=== PATIENT | male | born 1955 | race Caucasian/White ===

== ENCOUNTER 2018-05-20 05:52 | Day surgery (SDC) | payer OTHER ==
[~2018-05-20] VITALS: Ht 172.7 cm; Wt 90.8 kg
[~2018-05-20 05:52] MED LIST: ACET325T45 GTB; ALBU2.5V36 NEB; AMAN100T GTB; ASC500 GTB; BISA10SU58 PR; CRAN3875 GTB; DEXT1CAP GTB; DOCU-144 GTB; ENOX30DI10 SQ; HYDR15SO8 GTB; MAGN400O19 PO; METO-448 GTB; MULT9LIQ4 GTB; NA P118E PR; PANT40TA3 GTB; QUET25TA GTB
[2018-05-20] MEDS ORDERED: PROPOFOL 200 MG INJ ONE (07:00)
[2018-05-20 07:15] VITALS: Ht 172.7 cm; Wt 90.8 kg
[2018-05-20] MEDS ORDERED: ACET-514 PO (07:28)
[2018-05-20] MEDS ORDERED: CLOT30CR24 TOP (07:28)
[2018-05-20] MEDS ORDERED: NICO-546 TD (07:28)
[2018-05-20] MEDS ORDERED: TRIA15CR52 TOP (07:28)
[2018-05-20] MEDS ORDERED: TAMS0.4C2 PO (07:28)
[2018-05-20] MEDS ORDERED: OMEP20CA16 PO (07:28)
[2018-05-20] MEDS ORDERED: DOCU100T PO (07:28)
[2018-05-20] MEDS ORDERED: [UNRECOGNIZED DRUG - OTHER] (07:28)
[2018-05-20] MEDS ORDERED: BACL10TA PO (07:28)
[2018-05-20] MEDS ORDERED: GABA-528 PO (07:28)
--- NOTE | 2018-05-20 07:48 | PREAC ---
Date/Time of Note Date/Time of Note DATE: 05/20/18 TIME: 07:46 Anesthesia Eval and Record Evaluation Time Pre-Procedure Interview DATE: 05/20/18 TIME: 07:46 Age 62 Sex male NPO: 8 hrs Preoperative diagnosis ABDOMINAL PAIN Planned procedure EGD AND COLON Past Medical History Past Medical History: Includes Pulm: Smoking Hx Hepatic: Hepatitis Surgery & Anesthesia Issues No known issue Meds Anticoagulation: No Beta Grecia within 24 hr: No Reason Beta Grecia not given: Pt. not on B-Grecia Reported Medications Acetaminophen (Mapap) 325 Mg Tablet, 325 MG PO, TAB 05/20/18 Triamcinolone Acetonide* (Kenalog*) 0.5%-15GM Cr, 1 APPLIC TOP BID, #1 BOTTLE 05/20/18 [Neomycin-Polymyxin ] No Conflict Check 05/20/18 Baclofen* (Baclofen*) 10 Mg Tablet, 10 MG PO Q8, TAB 05/20/18 Tamsulosin Hcl* (Tamsulosin Hcl*) 0.4 Mg Cap.er.24h, 0.4 MG PO DAILY, CAP 05/20/18 Omeprazole* (Omeprazole*) 20 Mg Capsule.dr, 20 MG PO DAILY, #30 CAP 05/20/18 Docusate Sodium* (Dok*) 100 Mg Tablet, 100 MG PO DAILY, #30 CAP 05/20/18 Nicotine* (Nicotine* Patch) 21 mg/day Patch, 1 EACH TD DAILY, PATCH 05/20/18 Clotrimazole* (Clotrimazole* AF) 1% - 30 Gm Cream.gm., 1 APPLIC TOP BID, TUB 05/20/18 Gabapentin* (Gabapentin*) 800 Mg Tablet, 800 MG PO TID, #90 TAB 05/20/18 Discontinued Reported Medications Magnesium Hydroxide* (Milk Of Magnesia*) 400 Mg/5 Ml Oral.susp, 30 ML PO Q24H for CONSTIPATION, ML 04/23/14 Bisacodyl* (Dulcolax*) 10 Mg/Supp.rect Supp.rect, 10 MG OK Q24H PRN for CONSTIPATION, SUPP.RECT 04/23/14 Ascorbic Acid (Vitamin C) 500 Mg Tab, 500 MG GTB DAILY, TAB 04/17/14 Cran/Vitc/Mannose/Inulin/Brom (Uti-Stat Liquid) 3,875 Mg/30 Ml Liquid, 3875 MG GTB BID 04/17/14 Acetaminophen* (Acetaminophen*) 325 Mg Tablet, 325 MG GTB Q4H PRN for PAIN AND OR ELEVATED TEMP, TAB 04/17/14 Quetiapine Fumarate* (Seroquel*) 25 Mg Tablet, 12.5 MG GTB QHS, TAB 04/17/14 Pantoprazole* (Protonix*) 40 Mg Tablet.dr, 40 MG GTB DAILY, TAB 04/17/14 Dextromethorphan Hbr/Quinidine (NUEDEXTA 20-10 MG CAPSULE) 1 Each Capsule, 1 EACH GTB Q12 04/17/14 Multivit &Minerals/Ferrous Fum (MULTIVITAMIN LIQUID) 9 Mg/15 Ml Liquid, 3 MG GTB DAILY PRN for CONSTIPATION 04/17/14 Enoxaparin Sodium* (Lovenox*) 30 Mg/0.3 Ml Disp.syrin, 30 MG SQ BID, SYR 04/17/14 Hydrocodone Bit-Acetaminophen* (Lortab* Liq) 7.5 Mg-500 Mg/15 Ml Solution, 15 ML GTB Q4H PRN for PAIN, ML 04/17/14 Metoprolol Tartrate* (Lopressor*) 25 Mg Tab, 25 MG GTB BID, TAB 04/17/14 Na Phos,M-B/Na Phos,Di-Ba* (Fleet* Enema) 118 Ml Enema, 118 ML OK Q48H PRN for CONSTIPATION, ENEMA 04/17/14 Docusate Sodium* (Colace*) 100 Mg Capsule, 200 MG GTB QHS, CAP 04/17/14 Amantadine Hcl* (Amantadine Hcl*) 100 Mg Tablet, 100 MG GTB BID, TAB 04/17/14 Albuterol Sulfate* (Albuterol Sulfate* Neb) 0.5%-0.5 Ml Neb, 2.5 MG NEB Q3 PRN for WHEEZING AND SOB, EA 04/17/14 Meds reviewed: Yes Allergies Coded Allergies: No Known Allergy (Unverified , 04/17/14) Allergies Reviewed: Yes Labs/Studies Labs Reviewed: Reviewed by anesthesiologist test: N/A Pre-procedure Exam Airway: Adequate mouth opening, Adequate thyromental dist Mallampati: Mallampati II Teeth: Normal Lung: Normal Heart: Normal ASA Physical Status ASA physical status: 2 Emergency: None Planned Anesthetic General/MAC: MAC Planned Pain Management Parenteral pain med Pre-operative Attestations Prior to commencing anesthesia and surgery, the patient was re-evaluated, there was verification of: *The patient's identity *The results of appropriate recent lab work and preoperative vital signs *The above evaluation not changing prior to induction *Anesthetic plan, risk benefits, alternative and complications discussed with patient/family; questions answered; patient/family understands, accepts and wishes to proceed. TONG ARANGO May 20, 2018 07:48
[2018-05-20] MEDS ORDERED: PROPOFOL 60 ML ONE (07:54)
[2018-05-20] MEDS ORDERED: LIDOCAINE 2% (SDV) 5 ML INJ ONE (07:54)
[2018-05-20] MEDS ORDERED: EPHEDrine SULFATE 50 MG/5 ML SYG IV PRN (08:00)
[2018-05-20] MEDS ORDERED: ONDANSETRON 4 MG INJ IV PRN (08:00)
[2018-05-20] MEDS ORDERED: hydrALAzine 20 MG INJ IV PRN (08:00)
[2018-05-20] MEDS ORDERED: LABETALOL HCL 20MG INJ IV PRN (08:00)
[2018-05-20 08:10] VITALS: BP 119/72; PULSE 56; RESP 18
--- NOTE | 2018-05-20 08:43 | PAC ---
Date/Time of Note Date/Time of Note DATE: 05/20/18 TIME: 08:43 Post-Anesthesia Notes Post-Anesthesia Note Last documented vital signs Vital Signs Date Temp Pulse Resp B/P (MAP) Pulse Ox O2 O2 Flow FiO2 Time Delivery Rate 05/20/18 97.3 56 18 119/72 100 Room Air 08:42 (88) Activity: WNL Respiratory function: WNL Cardiovascular function: WNL Mental status: Baseline Pain reasonably controlled: Yes Hydration appropriate: Yes Nausea/Vomiting absent: Yes TONG ARANGO May 20, 2018 08:43
[2018-05-20 09:03] VITALS: BP 110/57; PULSE 58; RESP 18
== END 2018-05-20 09:38 | disposition home or self-care (01) ==
LOC: GIL 05:52
PROVIDERS: ATTEND Internal Medicine Gastroenterology
DX: K92.1 Melena (principal); D12.5 Benign neoplasm of sigmoid colon; K64.8 Other hemorrhoids; K64.4 Residual hemorrhoidal skin tags
CPT/HCPCS: 43239; 45380; 88305; Z7610

== ENCOUNTER 2018-08-12 11:07 | Day surgery (SDC) | payer OTHER ==
[~2018-08-12] VITALS: Ht 165.1 cm; Wt 89.4 kg
[~2018-08-12 11:07] MED LIST changes: +ACET-514 PO; -ACET325T45 GTB; -ALBU2.5V36 NEB; -AMAN100T GTB; -ASC500 GTB; +BACL10TA PO; -BISA10SU58 PR; +CLOT30CR24 TOP; -CRAN3875 GTB; -DEXT1CAP GTB; -DOCU-144 GTB; +DOCU100T PO; -ENOX30DI10 SQ; +GABA-528 PO; -HYDR15SO8 GTB; -MAGN400O19 PO; -METO-448 GTB; -MULT9LIQ4 GTB; -NA P118E PR; +NICO-546 TD; +OMEP20CA16 PO; -PANT40TA3 GTB; -QUET25TA GTB; +TAMS0.4C2 PO; +TRIA15CR52 TOP; +[UNRECOGNIZED DRUG - OTHER]
[2018-08-12 12:32] VITALS: Ht 165.1 cm; Wt 89.4 kg
[2018-08-12] MEDS ORDERED: PAIN MEDS (12:45)
[2018-08-12 12:53] VITALS: BP 131/78; PULSE 66; RESP 18
--- NOTE | 2018-08-12 13:01 | PREAC ---
Date/Time of Note Date/Time of Note DATE: 08/12/18 TIME: 12:58 Anesthesia Eval and Record Evaluation Time Pre-Procedure Interview DATE: 08/12/18 TIME: 12:58 Age 62 Sex male NPO: 8 hrs Preoperative diagnosis Positive Blood in Stool Planned procedure Colonoscopy Past Medical History Past Medical History: Includes Pulm: Smoking Hx GI: GERD Surgery & Anesthesia Issues No known issue Meds Anticoagulation: No Beta Grecia within 24 hr: No Reason Beta Grecia not given: Pt. not on B-Grecia Reported Medications [Pain Meds] No Conflict Check 08/12/18 Tamsulosin Hcl* (Tamsulosin Hcl*) 0.4 Mg Cap.er.24h, 0.4 MG PO DAILY, CAP 05/20/18 Omeprazole* (Omeprazole*) 20 Mg Capsule.dr, 20 MG PO DAILY, #30 CAP 05/20/18 Nicotine* (Nicotine* Patch) 21 mg/day Patch, 1 EACH TD DAILY, PATCH 05/20/18 Gabapentin* (Gabapentin*) 800 Mg Tablet, 800 MG PO TID, #90 TAB 05/20/18 Discontinued Reported Medications Acetaminophen (Mapap) 325 Mg Tablet, 325 MG PO, TAB 05/20/18 Triamcinolone Acetonide* (Kenalog*) 0.5%-15GM Cr, 1 APPLIC TOP BID, #1 BOTTLE 05/20/18 [Neomycin-Polymyxin ] No Conflict Check 05/20/18 Baclofen* (Baclofen*) 10 Mg Tablet, 10 MG PO Q8, TAB 05/20/18 Docusate Sodium* (Dok*) 100 Mg Tablet, 100 MG PO DAILY, #30 CAP 05/20/18 Clotrimazole* (Clotrimazole* AF) 1% - 30 Gm Cream.gm., 1 APPLIC TOP BID, TUB 05/20/18 Meds reviewed: Yes Allergies Coded Allergies: No Known Allergy (Unverified , 04/17/14) Allergies Reviewed: Yes Labs/Studies Labs Reviewed: Reviewed by anesthesiologist test: N/A Pre-procedure Exam Last vitals Vital Signs Date Temp Pulse Resp B/P (MAP) Pulse Ox O2 O2 Flow FiO2 Time Delivery Rate 08/12/18 98.0 66 18 131/78 98 Room Air 12:53 (95) Airway: Adequate mouth opening Mallampati: Mallampati II Teeth: Normal Lung: Normal Heart: Normal ASA Physical Status ASA physical status: 2 Emergency: None Planned Anesthetic General/MAC: MAC Pre-operative Attestations Prior to commencing anesthesia and surgery, the patient was re-evaluated, there was verification of: *The patient's identity *The results of appropriate recent lab work and preoperative vital signs *The above evaluation not changing prior to induction *Anesthetic plan, risk benefits, alternative and complications discussed with patient/family; questions answered; patient/family understands, accepts and wishes to proceed. MAIRA BRYANT MD Aug 12, 2018 13:01
[2018-08-12] MEDS ORDERED: PROPOFOL 60 ML ONE (13:36)
--- NOTE | 2018-08-12 14:20 | PAC ---
Date/Time of Note Date/Time of Note DATE: 08/12/18 TIME: 14:20 Post-Anesthesia Notes Post-Anesthesia Note Last documented vital signs Vital Signs Date Temp Pulse Resp B/P (MAP) Pulse Ox O2 O2 Flow FiO2 Time Delivery Rate 08/12/18 98.0 66 18 131/78 98 Room Air 12:53 (95) Activity: WNL Respiratory function: WNL Cardiovascular function: WNL Mental status: Baseline Pain reasonably controlled: Yes Hydration appropriate: Yes Nausea/Vomiting absent: Yes MAIRA BRYANT MD Aug 12, 2018 14:20
[2018-08-12 14:44] VITALS: BP 150/90; PULSE 62; RESP 30
== END 2018-08-12 15:45 | disposition home or self-care (01) ==
LOC: GIL 11:07
PROVIDERS: ATTEND Internal Medicine Gastroenterology
DX: K92.1 Melena (principal); K64.8 Other hemorrhoids; K64.4 Residual hemorrhoidal skin tags; K57.30 Diverticulosis of large intestine without perforation or abscess without bleeding
CPT/HCPCS: 45378; Z7610